=== PATIENT | male | born 1960 | race Native Hawaiian/Other Pacific Islander ===

== ENCOUNTER 2021-04-22 15:24 | Inpatient (IN) | payer SELFPAY ==
[~2021-04-22 15:24] MED LIST: EPINEPHrine 1 MG/10 ML SYRINGE ONE; SODIUM BICARB 8.4% 50 MEQ/50 ML SYRINGE IV ONE
--- NOTE | 2021-04-22 15:48 | Emergency Department Report ---
HPI - General Time Seen by Provider: 04/22/21 15:37 - HPI HPI: Room 6 The patient is a 61-year-old male present with chief complaint shortness of breath. Per EMS the patient was diagnosed with Covid approximate 4 days ago. Patient began complaining of worsening shortness of breath. EMS arrived on scene to find the patient hypoxic to approximately 50% on room air. Patient was placed on CPAP with improvement of sats to approximately 78%. In the ED the patient was switched to BiPAP with improvement of his SPO2 to greater than 90%. Patient denies pain of any type or cough. Patient states his only complaint is shortness of breath ED Past Medical Hx - Past Medical History Hx Hypertension: Yes Hx Diabetes: Yes - Surgical History Additional Surgical History: ? - Family History Family history: no significant - Social History Smoking Status: Unknown if ever smoked Substance Use Type: None ED Review of Systems ROS: Stated complaint: ZOEY/+COVID Other details as noted in HPI Constitutional: no symptoms reported Eyes: denies: eye pain ENT: denies: throat pain Respiratory: shortness of breath. denies: cough Cardiovascular: denies: chest pain Endocrine: no symptoms reported Gastrointestinal: denies: abdominal pain Genitourinary: denies: dysuria Musculoskeletal: denies: back pain Neurological: denies: headache Physical Exam - Physical Exam Vital Signs: Vital Signs 04/22/21 15:44 Pulse Rate 145 H Respiratory 50 H Rate O2 Sat by Pulse 91 Oximetry Physical Exam: GENERAL: The patient is well-developed well-nourished male lying on stretcher appearing slightly tachypnea. [] HEENT: Normocephalic. Atraumatic. Extraocular motions are intact. Patient has moist mucous membranes. NECK: Supple. Trachea midline CHEST/LUNGS: Increased work of breathing. No crackles or wheezing auscultated HEART/CARDIOVASCULAR: Regular. There is no tachycardia. There is no gallop rub or murmur. ABDOMEN: Abdomen is soft, nontender. Patient has normal bowel sounds. There is no abdominal distention. SKIN: There is no rash. There is no edema. There is no diaphoresis. NEURO: The patient is awake, alert, and oriented. The patient is cooperative. The patient has no focal neurologic deficits. The patient has normal speech MUSCULOSKELETAL: There is no evidence of acute injury. ED Medical Decision Making - Lab Data Result diagrams: 04/22/21 15:50 04/22/21 15:50 Laboratory Tests 04/22/21 04/22/21 04/22/21 15:42 15:50 15:50 WBC 16.4 H RBC 4.46 Hgb 14.2 Hct 42.2 MCV 95 H MCH 32 MCHC 34 RDW 13.2 Plt Count 251 Add Manual Diff Complete Total Counted 100 Seg Neuts % (Manual) 94.0 H Band Neutrophils % 1.0 Lymphocytes % (Manual) 1.0 L Monocytes % (Manual) 4.0 Nucleated RBC % 3.0 H Seg Neutrophils # Man 15.4 H Band Neutrophils # 0.2 Lymphocytes # (Manual) 0.2 L Abs React Lymphs (Man) 0.0 Monocytes # (Manual) 0.7 Eosinophils # (Manual) 0.0 Basophils # (Manual) 0.0 Metamyelocytes # 0.0 Myelocytes # 0.0 Promyelocytes # 0.0 Blast Cells # 0.0 WBC Morphology Not Reportable Hypersegmented Neuts Not Reportable Hyposegmented Neuts Not Reportable Hypogranular Neuts Not Reportable Smudge Cells Not Reportable Toxic Granulation 1+ Toxic Vacuolation Not Reportable Dohle Bodies Not Reportable Pelger-Huet Anomaly Not Reportable Sri Rods Not Reportable Platelet Estimate Consistent w auto Clumped Platelets Not Reportable Plt Clumps, EDTA Not Reportable Large Platelets Not Reportable Giant Platelets Not Reportable Platelet Satelliting Not Reportable Plt Morphology Comment Not Reportable RBC Morphology Normal Dimorphic RBCs Not Reportable Polychromasia Not Reportable Hypochromasia Not Reportable Poikilocytosis Not Reportable Anisocytosis Not Reportable Microcytosis Not Reportable Macrocytosis Not Reportable Spherocytes Not Reportable Pappenheimer Bodies Not Reportable Sickle Cells Not Reportable Target Cells Not Reportable Tear Drop Cells Not Reportable Ovalocytes Not Reportable Helmet Cells Not Reportable Moreno-Ranlo Bodies Not Reportable Dundee Rings Not Reportable Nathan Cells Not Reportable Bite Cells Not Reportable Crenated Cell Not Reportable Elliptocytes Not Reportable Acanthocytes (Spur) Not Reportable Rouleaux Not Reportable Hemoglobin C Crystals Not Reportable Schistocytes Not Reportable Malaria parasites Not Reportable Barrington Bodies Not Reportable Hem Pathologist Commnt No PT 17.2 H INR 1.35 H APTT 26.6 D-Dimer > 05882 H ABG pH ABG pCO2 ABG pO2 ABG HCO3 ABG O2 Saturation ABG O2 Content ABG Base Excess ABG Hemoglobin ABG Carboxyhemoglobin ABG Methemoglobin Oxyhemoglobin FiO2 Sodium Potassium Chloride Carbon Dioxide Anion Gap BUN Creatinine Estimated GFR BUN/Creatinine Ratio Glucose POC Glucose 583 H Calcium Ferritin Total Bilirubin AST ALT Alkaline Phosphatase Lactate Dehydrogenase Troponin T C-Reactive Protein NT-Pro-B Natriuret Pep Total Protein Albumin Albumin/Globulin Ratio Procalcitonin 04/22/21 04/22/21 04/22/21 15:50 15:50 15:50 WBC RBC Hgb Hct MCV MCH MCHC RDW Plt Count Add Manual Diff Total Counted Seg Neuts % (Manual) Band Neutrophils % Lymphocytes % (Manual) Monocytes % (Manual) Nucleated RBC % Seg Neutrophils # Man Band Neutrophils # Lymphocytes # (Manual) Abs React Lymphs (Man) Monocytes # (Manual) Eosinophils # (Manual) Basophils # (Manual) Metamyelocytes # Myelocytes # Promyelocytes # Blast Cells # WBC Morphology Hypersegmented Neuts Hyposegmented Neuts Hypogranular Neuts Smudge Cells Toxic Granulation Toxic Vacuolation Dohle Bodies Pelger-Huet Anomaly Sri Rods Platelet Estimate Clumped Platelets Plt Clumps, EDTA Large Platelets Giant Platelets Platelet Satelliting Plt Morphology Comment RBC Morphology Dimorphic RBCs Polychromasia Hypochromasia Poikilocytosis Anisocytosis Microcytosis Macrocytosis Spherocytes Pappenheimer Bodies Sickle Cells Target Cells Tear Drop Cells Ovalocytes Helmet Cells Moreno-Ranlo Bodies [place] Rings Nathan Cells Bite Cells Crenated Cell Elliptocytes Acanthocytes (Spur) Rouleaux Hemoglobin C Crystals Schistocytes Malaria parasites Barrington Bodies Hem Pathologist Commnt PT INR APTT D-Dimer ABG pH ABG pCO2 ABG pO2 ABG HCO3 ABG O2 Saturation ABG O2 Content ABG Base Excess ABG Hemoglobin ABG Carboxyhemoglobin ABG Methemoglobin Oxyhemoglobin FiO2 Sodium 134 L Potassium 4.1 Chloride 94.5 L Carbon Dioxide 12 L Anion Gap 32 BUN 24 H Creatinine 1.0 Estimated GFR > 60 BUN/Creatinine Ratio 24 Glucose 646 H* 640 H* POC Glucose Calcium 8.5 Ferritin 1032.0 H Total Bilirubin 0.90 AST 63 H ALT 42 Alkaline Phosphatase 212 H Lactate Dehydrogenase 843 H Troponin T < 0.010 C-Reactive Protein 34.10 H NT-Pro-B Natriuret Pep 323.3 Total Protein 7.9 Albumin 3.0 L Albumin/Globulin Ratio 0.6 Procalcitonin 04/22/21 04/22/21 15:50 16:25 WBC RBC Hgb Hct MCV MCH MCHC RDW Plt Count Add Manual Diff Total Counted Seg Neuts % (Manual) Band Neutrophils % Lymphocytes % (Manual) Monocytes % (Manual) Nucleated RBC % Seg Neutrophils # Man Band Neutrophils # Lymphocytes # (Manual) Abs React Lymphs (Man) Monocytes # (Manual) Eosinophils # (Manual) Basophils # (Manual) Metamyelocytes # Myelocytes # Promyelocytes # Blast Cells # WBC Morphology Hypersegmented Neuts Hyposegmented Neuts Hypogranular Neuts Smudge Cells Toxic Granulation Toxic Vacuolation Dohle Bodies Pelger-Huet Anomaly Sri Rods Platelet Estimate Clumped Platelets Plt Clumps, EDTA Large Platelets Giant Platelets Platelet Satelliting Plt Morphology Comment RBC Morphology Dimorphic RBCs Polychromasia Hypochromasia Poikilocytosis Anisocytosis Microcytosis Macrocytosis Spherocytes Pappenheimer Bodies Sickle Cells Target Cells Tear Drop Cells Ovalocytes Helmet Cells Moreno-Ranlo Bodies [place] Rings Nathan Cells Bite Cells Crenated Cell Elliptocytes Acanthocytes (Spur) Rouleaux Hemoglobin C Crystals Schistocytes Malaria parasites Barrington Bodies Hem Pathologist Commnt PT INR APTT D-Dimer ABG pH 7.371 ABG pCO2 25.0 ABG pO2 92.5 H ABG HCO3 14.2 L ABG O2 Saturation 97.0 ABG O2 Content 20.2 ABG Base Excess -9.1 L ABG Hemoglobin 15.0 ABG Carboxyhemoglobin 1.5 ABG Methemoglobin 0.3 Oxyhemoglobin 95.3 FiO2 100 Sodium Potassium Chloride Carbon Dioxide Anion Gap BUN Creatinine Estimated GFR BUN/Creatinine Ratio Glucose POC Glucose Calcium Ferritin Total Bilirubin AST ALT Alkaline Phosphatase Lactate Dehydrogenase Troponin T C-Reactive Protein NT-Pro-B Natriuret Pep Total Protein Albumin Albumin/Globulin Ratio Procalcitonin 0.80 - Radiology Data Radiology results: report reviewed (Chest x-ray), image reviewed (Chest x-ray) interpreted by me: Chest [id number] patchy bilateral infiltrates consistent with Covid. No pneumothorax [facility] [address] [place] [address] XRay Report Signed Patient: ISIS CISNEROS MR#: [id number] 8 : 1960 Acct:[id number] Age/Sex: 61 / M ADM Date: 04/22/21 Loc: ED Attending Dr: Ordering Physician: VINAYAK SILVA MD Date of Service: 04/22/21 Procedure(s): XR chest 1V ap Accession Number(s): [id number] cc: VINAYAK SILVA MD Fluoro Time In Minutes: XR chest 1V ap INDICATION / CLINICAL INFORMATION: Shortness of breath, Covid positive. COMPARISON: None available. FINDINGS: SUPPORT DEVICES: None. HEART /PULMONARY VASCULATURE: Cardiac silhouette is obscured, though appears unremarkable. LUNGS / PLEURA: Moderate-severe multifocal pulmonary airspace disease. No sizable pleural effusion. No discrete pneumothorax. ADDITIONAL FINDINGS: No significant additional findings. IMPRESSION: Multifocal pulmonary airspace disease, in keeping with reported history of COVID. Signer Name: Ruben Terry MD Signed: 04/22/2021 4:38 PM Workstation Name: [id number] Transcribed By: JS Dictated By: RUBEN TERRY MD Electronically Authenti cated By: RUBEN TERRY MD Signed Date/Time: 04/22/21 163 DD/ 163 TD/TT: Print Cancel - Differential Diagnosis Covid pneumonia, respiratory failure Critical care attestation.: If time is entered above; I have spent that time in minutes in the direct care of this critically ill patient, excluding procedure time. ED Disposition Clinical Impression: Pneumonia due to COVID-19 virus, Hypoxia Disposition: ADMITTED INPATIENT Is pt being admited?: Yes Does the pt Need Aspirin: No Condition: Fair Instructions: Bacterial Pneumonia (ED) Time of Disposition: 17:06 (Hospitalist notified (Dr. Bowers))
[2021-04-22 16:04] LABS: Hematocrit 42.2 % (35.5-45.6); Hemoglobin 14.2 gm/dl (11.8-15.2); Mean Corpuscular HGB Conc 34 % (32-34); Mean Corpuscular Volume 95 fl (84-94); Platelet Count 251 K/mm3 (140-440); Red Blood Count 4.46 M/mm3 (3.65-5.03); Red Cell Distribution Width 13.2 % (13.2-15.2)
[2021-04-22] MEDS: dexAMETHasone 20 MG/5 ML VIAL IV ONE ×2 (16:12→16:16)
[2021-04-22 16:17] LABS: INR 1.35 (0.87-1.13); Partial Thromboplastin Time 26.6 Sec. (24.2-36.6)
[2021-04-22 16:29] LABS: Alanine Aminotransferase 42 units/L (7-56); BUN/Creatinine Ratio 24; Blood Urea Nitrogen 24 mg/dL (9-20); Calcium 8.5 mg/dL (8.4-10.2); Hemolysis Index 9
[2021-04-22 16:30] LABS: C-Reactive Protein 34.1 mg/dL (0.00-1.30)
[2021-04-22 16:39] LABS: ABG Base Excess -9.1 mmol/L (-2.0-3.0); ABG HCO3 14.2 mmol/L (20.0-26.0); ABG Methemoglobin 0.3 % (0.0-1.5); ABG PH 7.371 pH Units (7.350-7.450); ABG PO2 92.5 mm Hg (80.0-90.0)
--- NOTE | 2021-04-22 16:42 | XRay Report ---
XR chest 1V ap INDICATION / CLINICAL INFORMATION: Shortness of breath, Covid positive. COMPARISON: None available. FINDINGS: SUPPORT DEVICES: None. HEART /PULMONARY VASCULATURE: Cardiac silhouette is obscured, though appears unremarkable. LUNGS / PLEURA: Moderate-severe multifocal pulmonary airspace disease. No sizable pleural effusion. N o discrete pneumothorax. ADDITIONAL FINDINGS: No significant additional findings. IMPRESSION: Multifocal pulmonary airspace disease, in keeping with reported history of COVID. Signer Name: Yannick Terry MD Signed: 04/22/2021 4:38 PM Workstation Name: [id number]
[2021-04-22] MEDS ORDERED: AZITHROMYCIN/NS 500 MG/250 ML 500 MG/250 ML BAG IV ONE (16:53)
[2021-04-22] MEDS ORDERED: cefTRIAXone/NS 1 GM/50 ML 1 GM/50 ML BAG IV ONE (16:53)
[2021-04-22 16:57] LABS: Band Neutrophils # (Manual) 0.2 K/mm3; Total Cells Counted 100
[2021-04-22 16:58] LABS: Platelet Estimate Consistent w Auto; RBC Morphology Normal; Toxic Granulation 1+
[2021-04-22] MEDS ORDERED: INSULIN REGULAR, HUMAN 100 UNITS/1 ML IV ONE (17:00)
--- NOTE | 2021-04-22 17:06 | History and Physical Report ---
History of Present Illness Chief complaint: I cannot breathe History of present illness: 61 YO Male with HTN, DM, Coronavirus Infection diagnosed 4 days ago presents to ED for evaluation. Patient reports "I cannot breathe". Patient states that he has experienced shortness of breath over the past 1 week with persistent and worsening symptoms over the past 4 days. Patient was diagnosed with coronavirus infection 4 days ago and has experienced worsening symptoms over the same timeframe. Patient acknowledges fatigue, decreased exercise tolerance, subjective fever, malaise, diminished oral intake. EMS was notified and upon arrival the patient was found to be in distress with a pulse oximetry of 80% on room air. The patient was placed on supplemental oxygen and transported to [facility] for further care and evaluation of the aforementioned symptoms. The patient was seen and evaluated in the emergency department. All lab and imaging studies reviewed. The patient was found to have a pulse oximetry of 70% while on supplemental oxygen which is consistent with acute hypoxemic respiratory failure. Chest x-ray revealed bilateral pneumonia which was complicated by sepsis. The patient was also found to have diabetic ketoacidosis. The patient was admitted to ICU due to increased risk of worsening symptoms. The patient was initiated on sepsis protocol, DKA protocol as well as coronavirus protocol. CTA chest has been ordered and is pending at time of admission. The patient was treated empirically with a therapeutic dose of anticoagulation with Lovenox. Patient is unable to speak in complete sentences and is using accessory muscles to breathe. Patient uses head gestures to deny chest pain, palpitation, productive cough, skin rash, recent ill contacts, unilateral leg swelling, calf pain, prolonged travel/immobility, individual/family history of DVT/bleeding/blood clotting disorders. Advance care planning conducted in ED. No prior admission for review. No medication listed at time of admission for reconciliation. Past History Past Medical History: diabetes, hypertension Past Surgical History: No surgical history, Other (Reviewed) Social history: single. denies: smoking, alcohol abuse Family history: hypertension Medications and Allergies Allergies Allergy/AdvReac Type Severity Reaction Status Date / Time No Known Allergies Allergy Unverified 04/22/21 15:49 Active Meds: Active Medications Azithromycin (Zithromax/Ns) 500 mg in 250 mls @ 250 mls/hr IV ONCE ONE; Protocol Stop: 04/22/21 17:52 Ceftriaxone Sodium (Rocephin/Ns 1 Gm/50 Ml) 1 gm in 50 mls @ 100 mls/hr IV ONCE ONE; Protocol Stop: 04/22/21 17:22 Review of Systems Constitutional: fever, fatigue, weakness, malaise Ears, nose, mouth and throat: no ear pain, no ear discharge, no decreased hearing, no nose pain, no nasal congestion Cardiovascular: no chest pain, no orthopnea, no palpitations Respiratory: cough, shortness of breath, no congestion, no wheezing Gastrointestinal: no abdominal pain, no nausea, no vomiting, no diarrhea Genitourinary Male: no hematuria, no flank pain, no discharge, no urinary frequency Rectal: no pain, no incontinence, no bleeding Musculoskeletal: no neck stiffness, no neck pain, no shooting arm pain, no arm numbness/tingling, no low back pain Integumentary: no rash, no pruritis, no redness, no sores, no wounds, no jaundice Neurological: no head injury, no transient paralysis, no weakness, no parathesias, no syncope Psychiatric: no anxiety, no change in sleep habits, no sleep disturbances, no hypersomnia, no change in appetite, no change in libido Endocrine: no cold intolerance, no polyphagia, no polydipsia, no polyuria, no nocturia Hematologic/Lymphatic: no easy bruising, no lymphedema Allergic/Immunologic: no urticaria, no anaphylaxis, no angioedema Exam - Constitutional Vitals: Temp Pulse Resp BP Pulse Ox 145 H 50 H 91 04/22/21 15:44 04/22/21 15:44 04/22/21 15:44 General appearance: Present: severe distress - EENT Eyes: Present: PERRL ENT: hearing intact, clear oral mucosa - Neck Neck: Present: supple, normal ROM - Respiratory Respiratory effort: labored, accessory muscle use, stridor Respiratory: bilateral: diminished, rhonchi - Cardiovascular Heart Sounds: Present: S1 & S2. Absent: rub, click - Extremities Extremities: pulses symmetrical, No edema Peripheral Pulses: abnormal (Capillary refill greater than 3.5 seconds) - Abdominal General gastrointestinal: Present: soft, non-tender, non-distended, normal bowel sounds Male genitourinary: Present: normal - Integumentary Integumentary: Present: dry, clammy, decreased turgor - Musculoskeletal Musculoskeletal: gait normal, strength equal bilaterally - Psychiatric Psychiatric: appropriate mood/affect, intact judgment & insight - Neurologic Neurologic: CNII-XII intact, moves all extremities HEART Score - HEART Score Troponin: Troponin T < 0.010 ng/mL (0.00-0.029) 04/22/21 15:50 Results - Labs CBC & Chem 7: 04/22/21 15:50 04/22/21 15:50 Labs: Abnormal lab results 04/22/21 04/22/21 04/22/21 Range/Units 15:42 15:50 15:50 WBC 16.4 H (4.5-11.0) K/mm3 MCV 95 H (84-94) fl Seg Neuts % (Manual) 94.0 H (40.0-70.0) % Lymphocytes % (Manual) 1.0 L (13.4-35.0) % Nucleated RBC % 3.0 H (0.0-0.9) % Seg Neutrophils # Man 15.4 H (1.8-7.7) K/mm3 Lymphocytes # (Manual) 0.2 L (1.2-5.4) K/mm3 PT 17.2 H (12.2-14.9) Sec. INR 1.35 H (0.87-1.13) D-Dimer > 99012 H (0-234) ng/mlDDU ABG pO2 (80.0-90.0) mm Hg ABG HCO3 (20.0-26.0) mmol/L ABG Base Excess (-2.0-3.0) mmol/L Sodium (137-145) mmol/L Chloride (98-107) mmol/L Carbon Dioxide (22-30) mmol/L BUN (9-20) mg/dL Glucose (75-100) mg/dL POC Glucose 583 H (70-105) mg/dL Ferritin (30.0-300.0) ng/mL AST (5-40) units/L Alkaline Phosphatase (35-129) units/L Lactate Dehydrogenase (91-180) units/L C-Reactive Protein (0.00-1.30) mg/dL Albumin (3.9-5) g/dL 04/22/21 04/22/21 04/22/21 Range/Units 15:50 15:50 15:50 WBC (4.5-11.0) K/mm3 MCV (84-94) fl Seg Neuts % (Manual) (40.0-70.0) % Lymphocytes % (Manual) (13.4-35.0) % Nucleated RBC % (0.0-0.9) % Seg Neutrophils # Man (1.8-7.7) K/mm3 Lymphocytes # (Manual) (1.2-5.4) K/mm3 PT (12.2-14.9) Sec. INR (0.87-1.13) D-Dimer (0-234) ng/mlDDU ABG pO2 (80.0-90.0) mm Hg ABG HCO3 (20.0-26.0) mmol/L ABG Base Excess (-2.0-3.0) mmol/L Sodium 134 L (137-145) mmol/L Chloride 94.5 L (98-107) mmol/L Carbon Dioxide 12 L (22-30) mmol/L BUN 24 H (9-20) mg/dL Glucose 646 H* 640 H* (75-100) mg/dL POC Glucose (70-105) mg/dL Ferritin 1032.0 H (30.0-300.0) ng/mL AST 63 H (5-40) units/L Alkaline Phosphatase 212 H (35-129) units/L Lactate Dehydrogenase 843 H (91-180) units/L C-Reactive Protein 34.10 H (0.00-1.30) mg/dL Albumin 3.0 L (3.9-5) g/dL 04/22/21 Range/Units 16:25 WBC (4.5-11.0) K/mm3 MCV (84-94) fl Seg Neuts % (Manual) (40.0-70.0) % Lymphocytes % (Manual) (13.4-35.0) % Nucleated RBC % (0.0-0.9) % Seg Neutrophils # Man (1.8-7.7) K/mm3 Lymphocytes # (Manual) (1.2-5.4) K/mm3 PT (12.2-14.9) Sec. INR (0.87-1.13) D-Dimer (0-234) ng/mlDDU ABG pO2 92.5 H (80.0-90.0) mm Hg ABG HCO3 14.2 L (20.0-26.0) mmol/L ABG Base Excess -9.1 L (-2.0-3.0) mmol/L Sodium (137-145) mmol/L Chloride (98-107) mmol/L Carbon Dioxide (22-30) mmol/L BUN (9-20) mg/dL Glucose (75-100) mg/dL POC Glucose (70-105) mg/dL Ferritin (30.0-300.0) ng/mL AST (5-40) units/L Alkaline Phosphatase (35-129) units/L Lactate Dehydrogenase (91-180) units/L C-Reactive Protein (0.00-1.30) mg/dL Albumin (3.9-5) g/dL Assessment and Plan - Patient Problems (1) Sepsis Current Visit: Yes Status: Acute Plan to address problem: Sepsis protocol: Chest x-ray, CBC, CMP, urinalysis, IV fluid resuscitation therapy, IV antibiotic therapy, maintain mean arterial pressure greater than or equal to 65, blood culture, serial lactic acid level. The high probability of a clinically significant, sudden or life threatening deterioration of the [respiratory, cardiac, renal, infectious disease, endocrine] system(s) required my full and direct attention, intervention and personal management. The aggregate critical care time was [90] minutes. This time is in addition to time spent performing reported procedures but includes the following: [x] Data Review and interpretation [x] Patient assessment and monitoring of vital signs [x] Documentation [x] Medication orders and management (2) DKA (diabetic ketoacidosis) Current Visit: Yes Status: Acute Qualifiers: Diabetes mellitus type: type 1 Plan to address problem: DKA protocol: Insulin drip, IV fluid resuscitation therapy, serial BMP to monitor anion gap, potassium repletion as per protocol: (3) Acute hypoxemic respiratory failure Current Visit: Yes Status: Acute Plan to address problem: Chest x-ray, supplemental oxygen, pulse oximetry, nebulizer therapy, D-dimer, CTA chest ordered and is pending at time of admission, therapeutic Lovenox x1 dose pending results of CTA chest to evaluate for pulmonary embolism. (4) Suspected 2019 novel coronavirus infection Current Visit: Yes Status: Acute Plan to address problem: Coronavirus protocol: IV antibiotic therapy, IV steroid therapy, contact precautions, isolation precautions, supplemental oxygen, pulse oximetry, vitamin C therapy, vitamin D therapy, zinc therapy, (5) COVID-19 vaccination not done Current Visit: Yes Status: Acute Plan to address problem: Patient counseled (6) DVT prophylaxis Current Visit: Yes Status: Acute Plan to address problem: SCD to bilateral lower extremities while in bed, therapeutic anticoagulation x1 dose. (7) Advance care planning Current Visit: Yes Status: Acute Plan to address problem: Disease education conducted, care plan discussed, diagnosis discussed, prognosis discussed, patient is full code, patient knowledges understanding and agreement with care plan, +30 minutes
[2021-04-22] MEDS ORDERED: ACETAMINOPHEN 325 MG TAB PO PRN ×2 (17:07→19:34)
[2021-04-22] MEDS ORDERED: HYDROmorphone 1 MG/1 ML INJ IV PRN ×2 (17:07→19:30)
[2021-04-22] MEDS ORDERED: SODIUM CHLORIDE 0.9% 1000 ML 2,000 ML IV ONE (17:30)
[2021-04-22] MEDS ORDERED: AZITHROMYCIN/NS 500 MG/250 ML 500 MG/250 ML BAG IV SCH (18:00)
[2021-04-22] MEDS ORDERED: cefTRIAXone/NS 2 GM/100 ML 2 GM/100 ML BAG IV SCH (18:00)
[2021-04-22] MEDS ORDERED: ALBUTEROL 2.5 MG/3 ML NEBU IH PRN (19:30)
[2021-04-22] MEDS ORDERED: oxyCODONE /ACETAMINOPHEN 5-325MG TAB PO PRN (19:30)
[2021-04-22 19:42] VITALS: BP 125/89
[2021-04-22] MEDS ORDERED: D5W/0.45% NACL/KCL 20 MEQ 20 MEQ/1,000 ML BAG IV SCH (20:00)
[2021-04-22] MEDS ORDERED: INSULIN REGULAR, HUMAN 100 UNITS in SODIUM CHLORIDE 0.9% 99 ML IV SCH (20:00)
[2021-04-22] MEDS ORDERED: ENOXAPARIN 100 MG/1 ML INJ SUB-Q ONE (20:00)
--- NOTE | 2021-04-22 20:20 | Event Note ---
Date: 04/22/21 I responded to a CODE BLUE in room 6. Nurse found patient unresponsive. ACLS immediately initiated. Patient found to be in asystole. CPR started. Patient immediately intubated by me using a glidscope. I visualized the tube passing through the vocal cords. Good breath sound on both sides. Management transfer to primary physician doctor Robinson. For further information please refer to code sheets.
--- NOTE | 2021-04-22 20:22 | Death Note ---
Note Date of : 04/22/21 Time of : 20:16 - Preliminary Cause of (problem) (1) Sepsis Preliminary cause of (2) DKA (diabetic ketoacidosis) Qualifiers: Diabetes mellitus type: type 1 Preliminary cause of (3) Acute hypoxemic respiratory failure Preliminary cause of (4) Suspected 2019 novel coronavirus infection Preliminary cause of (5) COVID-19 vaccination not done Preliminary cause of (6) DVT prophylaxis Preliminary cause of (7) Advance care planning Preliminary cause of
--- NOTE | 2021-04-22 20:22 | Event Note ---
Date: 04/22/21 [facility] FORTUNE was called. Patient found to be in asystolic arrest upon arrival. Patient treated" with ACLS protocol without return of perfusing cardiac rhythm. On neurologic exam. Patient pupils were fixed and dilated without pupillary response. On pulmonary exam the patient had absent breath sounds. On cardiac exam the patient had absent heartbeat. Patient was found to have asystole on consumer insights specialist. Patient pronounced at 2016 hrs.
[2021-04-22] MEDS ORDERED: SODIUM BICARB 8.4% 50 MEQ/50 ML SYRINGE IV ONE (20:36)
[2021-04-22] MEDS ORDERED: ASCORBIC ACID 500 MG TAB PO SCH (22:00)
[2021-04-22] MEDS ORDERED: methylPREDNISolone Sod Succinate 40 MG/1 ML INJ IV SCH (22:00)
[2021-04-22] MEDS ORDERED: ZINC SULFATE 220 MG CAP PO SCH (22:00)
[2021-04-23] MEDS ORDERED: CHOLECALCIFEROL (VIT D3) 1000 UNIT (25 mcg) TAB PO SCH (10:00)
== END 2021-04-22 20:30 | DRG 871 ==
LOC: ED 15:24 → CC1 19:32
PROVIDERS: ADMIT Internal Medicine; ATTEND Internal Medicine
PROC: 4A033R1 Measurement of Arterial Saturation, Peripheral, Percutaneous Approach (ICD-10-PCS; principal; 2021-04-22)
PROC: 5A09357 Assistance with Respiratory Ventilation, Less than 24 Consecutive Hours, Continuous Positive Airway Pressure (ICD-10-PCS; 2021-04-22)
PROC: 5A12012 Performance of Cardiac Output, Single, Manual (ICD-10-PCS; 2021-04-22)
DX: A41.9 Sepsis, unspecified organism (principal); E10.10 Type 1 diabetes mellitus with ketoacidosis without coma; J12.82 Pneumonia due to coronavirus disease 2019; J96.01 Acute respiratory failure with hypoxia; U07.1 COVID-19; I10 Essential (primary) hypertension; Z82.49 Family history of ischemic heart disease and other diseases of the circulatory system; I46.9 Cardiac arrest, cause unspecified
CPT/HCPCS: 36415; 71045; 80053; 82140; 82728; 82803; 82947; 82962; 83615; 83880; 84145; 84484; 85007; 85025; 85379; 85610; 85730; 86140; 86850; 86900; 86901; 87040; G0378; J0171; J0456; J0696; J1100; J1815